=== PATIENT | male | born 1990 | race Caucasian/White ===

== ENCOUNTER → 2021-09-25 | Outpatient (CLI) | payer OTHER ==
[2021-09-25 21:51] LABS: ALBUMIN 3.9 GM/DL (3.2-5.2); ALT/SGPT 28 U/L (12-78); BILIRUBIN,TOTAL 0.2 MG/DL (0.2-1.0); BLOOD UREA NITROGEN 15 MG/DL (7-18); CALCIUM LEVEL 9.5 MG/DL (8.5-10.1); CARBON DIOXIDE LEVEL 28 MEQ/L (21-32); CHLORIDE LEVEL 105 MEQ/L (98-107); CREATININE FOR GFR 0.89 MG/DL (0.70-1.30); FOLLICLE STIMULATING HORMONE 2.2 mIU/mL (1.4-18.1); FREE T4 1.11 NG/DL (0.76-1.46); GLOMERULAR FILTRATION RATE > 60.0 (>60); GLUCOSE, FASTING 91 MG/DL (70-100); LUTEINIZING HORMONE 2.3 mIU/mL (1.5-9.3); POTASSIUM SERUM 4.2 MEQ/L (3.5-5.1); SODIUM LEVEL 141 MEQ/L (136-145); TOTAL PROTEIN 6.9 GM/DL (6.4-8.2)
== END ==
LOC: M PLALAB 11:17
PROVIDERS: ATTEND Surgery
DX: N62 Hypertrophy of breast (principal); N63.0 Unspecified lump in unspecified breast; Z92.241 Personal history of systemic steroid therapy; F10.11 Alcohol abuse, in remission; Z79.1 Long term (current) use of non-steroidal anti-inflammatories (NSAID)
CPT/HCPCS: 36415; 80053; 83001; 83002; 84439; 84443; 84702; G0463

== ENCOUNTER → 2021-10-09 | Outpatient (CLI) | payer OTHER | LOC: M WHC 12:32 → EDUNIT# 13:00 | PROVIDERS: ATTEND Surgery | DX: N62 Hypertrophy of breast (principal); N63.0 Unspecified lump in unspecified breast | CPT/HCPCS: 77066; G0279 ==

== ENCOUNTER → 2022-01-10 | Outpatient (CLI) | payer OTHER ==
[2022-01-10 14:47] LABS: HEMOGLOBIN 13.4 g/dl (13.5-17.5); MEAN CORPUSCULAR HEMOGLOBIN 29.1 pg (27.0-33.0); MEAN CORPUSCULAR HGB CONC 31.9 g/dl (32.0-36.5); MEAN CORPUSCULAR VOLUME 91.1 fl (80.0-96.0); PLATELET COUNT, AUTOMATED 317 10^3/uL (150-450); RED BLOOD COUNT 4.61 10^6/uL (4.30-6.10); WHITE BLOOD COUNT 8.4 10^3/uL (4.0-10.0)
[2022-01-10 18:02] LABS: ALT/SGPT 27 U/L (7.0-40); BILIRUBIN,DIRECT < 0.1 MG/DL (<0.4); BILIRUBIN,TOTAL 0.3 MG/DL (0.3-1.2); BLOOD UREA NITROGEN 12 MG/DL (9-23); CARBON DIOXIDE LEVEL 32 MMOL/L (20-31); CHLORIDE LEVEL 102 MMOL/L (98-107); CREATININE FOR GFR 0.92 MG/DL (0.70-1.30); ESTRADIOL 22.7 PG/ML (<39.8); FOLLICLE STIMULATING HORMONE 2.6 mIU/ML (1.4-18.1); FREE T4 1.33 NG/DL (0.89-1.76); GLOMERULAR FILTRATION RATE > 60.0 (>60); GLUCOSE, FASTING 86 MG/DL (60-100); LUTEINIZING HORMONE 5.2 mIU/ML (1.5-9.3); POTASSIUM SERUM 4.5 MMOL/L (3.5-5.1); PROLACTIN 6.57 NG/ML (2.1-17.7); SODIUM LEVEL 142 MMOL/L (136-145); TOTAL PROTEIN 6.8 G/DL (5.7-8.2)
[2022-01-13 12:07] LABS: HCG SERUM TUMOR MARKER QUANT < 1 mIU/mL (0-3); TESTOSTERONE FREE (DIRECT) 11.5 pg/mL (8.7-25.1)
== END ==
LOC: M LAB 14:04
PROVIDERS: ATTEND Plastic Surgery Surgery of the Hand
DX: N62 Hypertrophy of breast (principal); Z79.1 Long term (current) use of non-steroidal anti-inflammatories (NSAID)

== ENCOUNTER → 2022-04-19 | Outpatient (CLI) | payer OTHER | LOC: M LABSMTC 09:37 | PROVIDERS: ATTEND Anesthesiology | DX: Z01.818 Encounter for other preprocedural examination (principal); Z11.52 Encounter for screening for COVID-19 ==

== ENCOUNTER 2022-04-24 08:32 | Observation (INO) | payer OTHER ==
[~2022-04-24] VITALS: Ht 185.4 cm; Wt 103.0 kg
[2022-04-24] MEDS ORDERED: LIDOCAINE 2% 100MG/5ML SDV (FOR ANES.) As Ordered ONE (08:42)
[2022-04-24] MEDS ORDERED: ONDANSETRON 4MG 2ML VIAL As Ordered ONE (08:42)
[2022-04-24] MEDS ORDERED: propofoL 200 MG/20 ML VIAL As Ordered ONE ×2 (08:42→11:23)
[2022-04-24] MEDS ORDERED: fentaNYL 250 MCG/5 ML INJECTION As Ordered ONE (08:42)
[2022-04-24] MEDS ORDERED: ROCURONIUM BROMIDE 50MG/5ML VIAL As Ordered ONE ×3 (08:42→11:43)
[2022-04-24] MEDS ORDERED: MIDAZOLAM INJ 2MG/2ML VIAL As Ordered ONE (08:43)
[2022-04-24] MEDS ORDERED: HYDROmorphone HCL 2MG/ML 1ML VIAL As Ordered ONE (09:13)
[2022-04-24] MEDS ORDERED: HEPARIN SOD (PORCINE) 5000UNITS/ML 1ML VIAL/SYRINGE SQ ONE (09:15)
[2022-04-24] MEDS ORDERED: ceFAZolin SOD 2 GM in IV 1 EA IV ONE ×2 (09:15→15:00)
[2022-04-24] MEDS ORDERED: LR 1,000 ML IV SCH (09:30)
[2022-04-24] MEDS ORDERED: LIDOCAINE 1% MDV 20ML VIAL As Ordered ONE (10:11)
[2022-04-24] MEDS ORDERED: EPINEPHrine INJ 1 MG/ML 1ML AMP As Ordered ONE (10:11)
[2022-04-24] MEDS ORDERED: BUPIVACAINE LIPOSOME/PF 1.3% 20ML VIAL (13.3MG/ML)(EXPAREL) As Ordered ONE (10:12)
[2022-04-24] MEDS ORDERED: BUPIVACAINE HCL 0.25% 10ML VIAL As Ordered ONE (10:12)
[2022-04-24] MEDS ORDERED: GENTAMICIN SULF 80MG/2ML VIAL As Ordered ONE (10:12)
[2022-04-24] MEDS ORDERED: SEVOFLURANE INHAL SOLN 250 ML BTL As Ordered ONE (10:23)
[2022-04-24] MEDS ORDERED: ACETAMINOPHEN 1000MG 100ML IV BAG As Ordered ONE (11:42)
[2022-04-24] MEDS ORDERED: SUGAMMADEX SODIUM 500 MG/5 ML VIAL (BRIDION) As Ordered ONE (11:42)
[2022-04-24] MEDS ORDERED: LACRILUBE (AKWA TEARS) OPHTH OINT 3.5GM As Ordered ONE (12:00)
[2022-04-24] MEDS ORDERED: HYDROMORPHONE HCL 0.5 MG/ 0.5 ML SYRINGE IV PRN (14:05)
[2022-04-24] MEDS ORDERED: METOCLOPRAMIDE INJ 10MG/2ML VIAL IV PRN (14:05)
[2022-04-24] MEDS ORDERED: ONDANSETRON 4MG 2ML VIAL IV PRN ×2 (14:05→14:30)
[2022-04-24] MEDS ORDERED: fentaNYL 100 MCG/2 ML INJECTION IV PRN (14:05)
[2022-04-24] MEDS ORDERED: oxyCODONE 5MG TAB PO PRN (14:05)
[2022-04-24] MEDS ORDERED: ACETAMINOPHEN TAB 650MG DOSE (2X325MG) PO PRN (14:30)
[2022-04-24 15:30] VITALS: BP 130/86
[2022-04-24] MEDS: LR 1,000 ML IV SCH ×2 (15:49→19:35)
[2022-04-24 16:00] VITALS: BP 146/82
[2022-04-24 17:00] VITALS: BP 136/74
[2022-04-24 18:00] VITALS: BP 156/88
[2022-04-24 19:00] VITALS: BP 155/89
[2022-04-24] MEDS ORDERED: NICOTINE 21MG/24HR 1 EA TRANSDERMAL TD ONE (19:10)
[2022-04-24] MEDS: PERCOCET 5MG/325MG TAB PO PRN (19:51)
[2022-04-24 20:00] VITALS: BP 132/74
[2022-04-24] MEDS: traMADol 50 MG TAB PO PRN (21:14)
[2022-04-25 06:00] VITALS: BP 109/60
[2022-04-25] MEDS: traMADol 50 MG TAB PO PRN (06:06)
[2022-04-25] MEDS: PERCOCET 5MG/325MG TAB PO PRN (08:48)
[2022-04-25 10:00] VITALS: BP 117/65
[2022-04-25] MEDS ORDERED: OXYC1TAB23 PO (12:05)
== END 2022-04-25 13:55 | disposition home or self-care (01) ==
LOC: M SDC 08:32 → M MS5PR 08:33 → UNDOADMOB 14:26 → M MS5PR 15:25
PROVIDERS: ADMIT Plastic Surgery Surgery of the Hand; ATTEND Plastic Surgery Surgery of the Hand
DX: N62 Hypertrophy of breast (principal); M25.512 Pain in left shoulder; F41.9 Anxiety disorder, unspecified; E78.5 Hyperlipidemia, unspecified; G62.9 Polyneuropathy, unspecified; F43.10 Post-traumatic stress disorder, unspecified; F10.10 Alcohol abuse, uncomplicated; G47.9 Sleep disorder, unspecified; M45.9 Ankylosing spondylitis of unspecified sites in spine; Z79.899 Other long term (current) drug therapy; Z87.891 Personal history of nicotine dependence
CPT/HCPCS: 19300; 88300; 88305; 96374; 96375; C9290; G0378; J0690; J1100; J1170; J2250; J2405; J3010